=== PATIENT | male | born 1950 | race Caucasian/White ===

== ENCOUNTER 2022-03-27 21:32 | Emergency (ER) | payer OTHER ==
[~2022-03-27] VITALS: Ht 180.3 cm; Wt 9.1 kg
[2022-03-27 21:51] VITALS: BP_SYST 156
[2022-03-27] MEDS ORDERED: INSULIN REGULAR, HUMAN 10 UNITS/0.1 ML INJ SUBCUT ONE (22:15)
--- NOTE | 2022-03-27 22:24 | NUR ---
Pt brought by self, A&Ox4, pt presents to ER with high blood sugar this 700 am (574) , 372 prior arrival and 404 BS at this time, c/o states he is diabetic for 10 years and not taking medications, states sugar was controlled with diet, pt c/o being thirsty, skin pink and warm, cap refill <3, respirations even and unlabored.
--- NOTE | 2022-03-27 22:39 | NUR ---
Pt medicated with insuline as ordered
--- NOTE | 2022-03-27 23:05 | NUR ---
Report given to Criss BROWN
[2022-03-28] MEDS ORDERED: METF-863 PO (00:38)
--- NOTE | 2022-03-28 00:41 | NUR ---
Patient given written and verbal discharge instructions given by Dr Rodriguez and verbalizes understanding. ER MD discussed with patient the treatment provided. Patient in stable condition. ID arm band removed by Dr Rodriguez. Rx of Metformin tab dent to preferred pharmacy by ER MD. Patient educated on pain management and to follow up with PMD. Pain Scale 0/10. Opportunity for questions provided and answered by Dr Rodriguez.
== END 2022-03-28 00:41 | disposition home or self-care (01) ==
LOC: SED 21:32
DX: E11.65 Type 2 diabetes mellitus with hyperglycemia (principal); R73.9 Hyperglycemia, unspecified; H53.8 Other visual disturbances; Z79.899 Other long term (current) drug therapy
CPT/HCPCS: 96372; 99283; J1815